=== PATIENT | female | born 1930 | race Two or more races ===

== ENCOUNTER 2019-03-27 09:35 | Emergency (ER) | payer OTHER, MEDICAID ==
[~2019-03-27] VITALS: Ht 157.5 cm; Wt 63.5 kg
[2019-03-27] MEDS ORDERED: UNOBMED (09:40)
[2019-03-27 09:41] VITALS: BP 128/61
--- NOTE | 2019-03-27 09:42 | NUR ---
ED Nurse Note: Patient brought into ED by her family member from home, c/o right wrist, lower back, and left hip pain. patient s/p fall since yesterday, reports she hit her head on the back, denies LOC, reports vomiting x1 this morning. patient is alert awake x4 breathing unlabored and even, skin is warm to touch.
[2019-03-27] MEDS ORDERED: Morphine Sulfate 2mg/ml Inj(IV/IM USE ONLY) IVP ONE (09:45)
--- NOTE | 2019-03-27 10:07 | NUR ---
ED Nurse Note: patient went to ct/xray
[2019-03-27 10:25] LABS: HEMOGLOBIN 12.2 G/DL (12.0-16.0); MEAN CORPUSCULAR VOLUME 95 FL (80-99); PLATELET COUNT 123 K/UL (150-450); RED BLOOD COUNT 3.99 M/UL (4.20-5.40); RED CELL DISTRIBUTION WIDTH 12.4 % (11.6-14.8)
[2019-03-27 10:33] LABS: ANION GAP 8 mmol/L (5-15); BLOOD UREA NITROGEN 19 mg/dL (7-18); CALCIUM 9.4 MG/DL (8.5-10.1); CARBON DIOXIDE 28 MMOL/L (21-32); CHLORIDE 106 MMOL/L (98-107); CREATININE 1.2 MG/DL (0.55-1.30); POTASSIUM 3.7 MMOL/L (3.5-5.1); SODIUM 142 MMOL/L (136-145)
--- NOTE | 2019-03-27 10:40 | Diagnostic Imaging Report ---
Indications: Head trauma, status post fall Technique: Spiral acquisitions obtained through the brain. Angled axial and coronal 5 x 5 mm slices were reconstructed. Total dose length product 1300.84 mGycm. CTDI vol(s) 70.38 mGy. Dose reduction achieved using automated exposure control Comparison: None. Findings: There is marked age-related enlargement of the ventricles and extra axial CSF spaces. Old lacunar infarct is seen in the right lentiform nucleus. Old infarct in the right posterior inferior frontal deep white matter results in some ex vacuo dilatation of the right lateral ventricle. There is generalized enlargement of the ventricles and extra-axial CSF spaces. Otherwise normal srivastava-white differentiation. No acute intracranial hemorrhage or edema, mass effect, nor midline shift. Impression: Chronic and age-related changes, as described Old lacunar infarcts Negative for acute intracranial bleed or mass effect The CT scanner at [facility] is accredited by the [employer] and the scans are performed using protocols designed to limit radiation exposure to as low as reasonably achievable to attain images of sufficient resolution adequate for diagnostic evaluation.
--- NOTE | 2019-03-27 10:50 | NUR ---
ED Nurse Note: troponin notified to Dr. Davey
--- NOTE | 2019-03-27 11:02 | NUR ---
ED Nurse Note: patient came back from CT/xray
[2019-03-27] MEDS ORDERED: DONEPEZIL HCL10 M2 ORAL (11:07)
[2019-03-27] MEDS ORDERED: HYDRALAZINE HCL25 M1 ORAL (11:07)
[2019-03-27] MEDS ORDERED: METOPROLOL TART25 MG ORAL (11:07)
[2019-03-27] MEDS ORDERED: ASPIRIN81 MG ORAL (11:08)
[2019-03-27] MEDS ORDERED: OMEPRAZOLE40 M1 ORAL (11:08)
--- NOTE | 2019-03-27 11:14 | Diagnostic Imaging Report ---
Indication: Chest pain, status post fall Technique: One view of the chest Comparison: none Findings: The bones are grossly intact. No pneumothorax. Lungs and pleural spaces are clear. The heart is borderline enlarged. The aorta is tortuous and calcified. Surgical clips are seen in the upper abdomen. Impression: No acute process
[2019-03-27 11:24] LABS: ALANINE AMINOTRANSFERASE 22 U/L (12-78); ALBUMIN 3.5 G/DL (3.4-5.0); ALBUMIN/GLOBULIN RATIO 1.1 (1.0-2.7); ALKALINE PHOSPHATASE 59 U/L (46-116); ASPARTATE AMINO TRANSFERASE 23 U/L (15-37); BILIRUBIN,TOTAL 0.5 MG/DL (0.2-1.0); CKMB 1.1 NG/ML (0.0-3.6); CREATINE KINASE 144 U/L (26-308)
--- NOTE | 2019-03-27 11:37 | Diagnostic Imaging Report ---
Indication: Left hip pain, status post fall Technique: One view of the pelvis, 2 views of the left hip Comparison: none Findings: Bones are osteoporotic. The AP pelvis view demonstrates slight asymmetry of the left hip, without definite fracture visible on the dedicated hip radiographs. Probably secondary to asymmetric rotation. No definite acute fractures. No dislocations. The joint spaces are preserved. There is an old healed fracture deformity of the right inferior pubic ramus. Surgical clips are seen in the lower abdomen Impression: No definite acute bony trauma. Note, however, that in elderly osteoporotic patients, nondisplaced hip and pelvic fractures can easily be occult. Consider cross-sectional imaging for further evaluation if there is high clinical suspicion
--- NOTE | 2019-03-27 11:41 | Diagnostic Imaging Report ---
Indication: Reason For Exam: FALL Technique: 3 views of the lumbar spine Comparison: None Findings:Exam is limited due to scoliotic deformity and overlying surgical clips and monitoring leads. No definite acute fractures. There is equivocal slight loss of height of the L2 vertebral body, but this could be due to degenerative remodeling or an artifact of the scoliotic deformity. No dislocations. The disc spaces are preserved. The visualized pedicles are intact. Impression: Limited exam. No definite acute bony trauma
--- NOTE | 2019-03-27 11:47 | NUR ---
ED Nurse Note: xray at the bedside
--- NOTE | 2019-03-27 12:45 | Diagnostic Imaging Report ---
Clinical Indication:Pain, status post fall Technique: 3 views of the right wrist Comparison: None Findings: Bones are profoundly osteoporotic. On the lateral view, one or more small osseous fragments are seen projected posterior to the proximal carpal row, and a somewhat better corticated fragment projects anterior to the proximal carpal row. Otherwise, no definite acute fractures. No dislocations. The joint spaces are preserved. There may be some calcification of the triangular fibrocartilage. Impression: Small osseous fragments posterior to the proximal carpal row. Suspect degenerative in nature but triquetral fracture of indeterminate acuity also possible. Correlate with clinical findings No other definite acute process Osteoporosis Findings discussed by phone with Dr. Hawkins
--- NOTE | 2019-03-27 15:06 | Emergency Room Report ---
History of Present Illness General Chief Complaint: Multiple Trauma/Fall Source: Patient Present Illness HPI 88-year-old female presents ED for evaluation. Brought in by running with head pain and back pain and hip pain status post fall yesterday. States it was a mechanical fall. Unsure whether she lost consciousness. Complaining of pain to her head and back and hip. Pain is dull, 8 out of 10, nonradiating. Denies chest pain or shortness of breath. No other aggravating relieving factors. Denies any other associated symptoms Allergies: Coded Allergies: CODEINE (Verified Allergy, Severe, 03/27/19) STREPTOMYCIN (Verified Allergy, Severe, 03/27/19) lips swell Patient History Past Medical History: HTN Past Surgical History: none Pertinent Family History: none Social History: Denies: smoking, alcohol use, drug use Now: No Immunizations: UTD Reviewed Nursing Documentation: PMH: Agreed; PSxH: Agreed Nursing Documentation-PMH Past Medical History: No History, Except For Hx Hypertension: Yes Review of Systems All Other Systems: negative except mentioned in HPI Physical Exam Vital Signs Date Time Temp Pulse Resp B/P (MAP) Pulse Ox O2 Delivery O2 Flow Rate FiO2 03/27/19 09:37 98.2 54 16 132/67 (88) 95 Room Air Sp02 EP Interpretation: reviewed, normal General Appearance: no apparent distress, alert, GCS 15, non-toxic Head: normocephalic, other - posterior scalp TTP Eyes: bilateral eye normal inspection, bilateral eye PERRL ENT: hearing grossly normal, normal pharynx, no angioedema, normal voice Neck: full range of motion, supple/symm/no masses Respiratory: chest non-tender, lungs clear, normal breath sounds, speaking full sentences Cardiovascular #1: regular rate, rhythm, no edema Cardiovascular #2: 2+ carotid (R), 2+ carotid (L), 2+ radial (R), 2+ radial (L) , 2+ dorsalis pedis (R), 2+ dorsalis pedis (L) Gastrointestinal: normal bowel sounds, non tender, soft, non-distended, no guarding, no rebound Rectal: deferred Genitourinary: normal inspection, no CVA tenderness, vertebral tenderness Musculoskeletal: back normal, gait/station normal, normal range of motion, tender - L hip Neurologic: alert, oriented x3, responsive, motor strength/tone normal, sensory intact, speech normal Psychiatric: judgement/insight normal, memory normal, mood/affect normal, no suicidal/homicidal ideation Reflexes: 3+ bicep (R), 3+ bicep (L), 3+ tricep (R), 3+ tricep (L), 3+ knee (R) , 3+ knee (L) Lymphatic: no adenopathy Procedures Splinting Splinting : Consent: Verbal Pre-Made Type: velcro Splint: wrist Pre-Proc Neuro Vasc Exam: normal Post-Proc Neuro Vasc Exam: normal Patient Tolerated: Well Complications: None Medical Decision Making Diagnostic Impression: Primary Impression: Multiple injuries due to trauma Additional Impression: Elevated troponin ER Course Hospital Course 88 yo F presents with headache, back and hip pain s/p fall Differential diagnoses include: WI/unstable angina, arrythmia, dehydration, CVA/ TIA Clinical course Patient placed on stretcher. on cardiac cath lab technologist. After initial history and physical I ordered labs, EKG, chest x-ray, pain meds,, CT Brain labs reviewed- no leukocytosis, hemoglobin/hematocrit ok, electrolytes okay, troponins 0.119 EKG- NSR, no acute ischemic changes interpreted by me Chest x-ray- no acute process CT brain-unremarkable L-spine and hip x-ray show no obvious fracture Wrist x-ray shows questionable triquetral fracture placed in wrist splint. Denies chest pain. Given aspirin. because of insurance patient will be transferred I. I feel this is a highly complex case requiring extensive working including EKG/Rhythm strip, Xray/CT/US, Blood/urine lab work, repeat exams while in ED, and administration of strong opiates/narcotics for pain control, admission to hospital or close patient follow up. Diagnosis - multiple injuries due to trauma, elevated troponin transferred in serious condition Labs Test 03/27/19 10:00 White Blood Count 11.0 K/UL (4.8-10.8) Red Blood Count 3.99 M/UL (4.20-5.40) Hemoglobin 12.2 G/DL (12.0-16.0) Hematocrit 38.0 % (37.0-47.0) Mean Corpuscular Volume 95 FL (80-99) Mean Corpuscular Hemoglobin 30.5 PG (27.0-31.0) Mean Corpuscular Hemoglobin Concent 32.0 G/DL (32.0-36.0) Red Cell Distribution Width 12.4 % (11.6-14.8) Platelet Count 123 K/UL (150-450) Mean Platelet Volume 12.4 FL (6.5-10.1) Neutrophils (%) (Auto) % (45.0-75.0) Lymphocytes (%) (Auto) % (20.0-45.0) Monocytes (%) (Auto) % (1.0-10.0) Eosinophils (%) (Auto) % (0.0-3.0) Basophils (%) (Auto) % (0.0-2.0) Differential Total Cells Counted 100 Neutrophils % (Manual) 82 % (45-75) Lymphocytes % (Manual) 9 % (20-45) Monocytes % (Manual) 6 % (1-10) Eosinophils % (Manual) 2 % (0-3) Basophils % (Manual) 1 % (0-2) Band Neutrophils 0 % (0-8) Platelet Estimate Decreased Platelet Morphology Normal Anisocytosis 1+ Sodium Level 142 MMOL/L (136-145) Potassium Level 3.7 MMOL/L (3.5-5.1) Chloride Level 106 MMOL/L (98-107) Carbon Dioxide Level 28 MMOL/L (21-32) Anion Gap 8 mmol/L (5-15) Blood Urea Nitrogen 19 mg/dL (7-18) Creatinine 1.2 MG/DL (0.55-1.30) Estimat Glomerular Filtration Rate mL/min (>60) Glucose Level 115 MG/DL (74-106) Calcium Level 9.4 MG/DL (8.5-10.1) Total Bilirubin 0.5 MG/DL (0.2-1.0) Aspartate Amino Transf (AST/SGOT) 23 U/L (15-37) Alanine Aminotransferase (ALT/SGPT) 22 U/L (12-78) Alkaline Phosphatase 59 U/L (46-116) Total Creatine Kinase 144 U/L (26-308) Creatine Kinase MB 1.1 NG/ML (0.0-3.6) Creatine Kinase MB Relative Index 0.7 Troponin I 0.119 ng/mL (0.000-0.056) Total Protein 6.6 G/DL (6.4-8.2) Albumin 3.5 G/DL (3.4-5.0) Globulin 3.1 g/dL Albumin/Globulin Ratio 1.1 (1.0-2.7) EKG Diagnostic Results Rate: normal Rhythm: NSR ST Segments: no acute changes ASA given to the pt in ED: Yes Rhythm Strip Diag. Results EP Interpretation: yes Rhythm: NSR, no PVC's, no ectopy Chest X-Ray Diagnostic Results Chest X-Ray Diagnostic Results : Chest X-Ray Ordered: Yes # of Views/Limited/Complete: 1 View Indication: Chest Pain EP Interpretation: Yes Interpretation: no consolidation, no effusion, no pneumothorax, no acute cardiopulmonary disease Impression: No acute disease Electronically Signed by: Electronically signed by Shubham Hawkins MD Other X-Ray Diagnostic Results Other X-Ray Diagnostic Results #1: X-Ray ordered: L spine # of Views/Limited Vs Complete: 3 View Indication: Pain EP Interpretation: Yes Interpretation: no dislocation, no soft tissue swelling, no fractures Impression: No acute disease Electronically Signed by: Electronically signed by Shubham Hawkins MD Other X-Ray Diagnostic Results #2: X-Ray ordered: R wrist # of Views/Limited Vs Complete: 3 View Indication: Pain EP Interpretation: Yes Interpretation: no dislocation, no soft tissue swelling, other - ? triquetral fx Impression: Other - ?fx Electronically Signed by: Electronically signed by Shubham Hawkins MD Other X-Ray Diagnostic Results #3: X-Ray ordered: Hip + Pelvis # of Views/Limited Vs Complete: 3 View Indication: Pain EP Interpretation: Yes Interpretation: no dislocation, no soft tissue swelling, no fractures Impression: No acute disease Electronically Signed by: Electronically signed by Shubham Hawkins MD Last Vital Signs Date Time Temp Pulse Resp B/P (MAP) Pulse Ox O2 Delivery O2 Flow Rate FiO2 03/27/19 11:03 98.2 03/27/19 09:43 60 16 Room Air 03/27/19 09:41 128/61 97 Status: improved Disposition: XFER SHT-TRM HOSP Condition: Serious Referrals: NON PHYSICIAN (PCP) Shubham Hawkins MD Mar 27, 2019 15:06
--- NOTE | 2019-03-27 15:07 | NUR ---
ED Nurse Note: Received verbal order from Dr. Hawkins to give pt asa 325mg 1 tab po once prior to transfer. overrode asa 1 tab 325mg.
--- NOTE | 2019-03-27 15:22 | NUR ---
ED Nurse Note: report given to [facility] at [place]
--- NOTE | 2019-03-27 15:35 | NUR ---
ED Nurse Note: patient is being transferred with [facility] with all of her belongings with her sister.
[2019-03-27 15:36] VITALS: BP 128/61
--- NOTE | 2019-03-29 16:27 | Cardiology Report ---
APPROVED REPORT EKG Measurement Heart [id number] PA 204P48 [id number] Sinus rhythm with marked sinus arrhythmia and PACs Right bundle branch block Minimal voltage criteria for LVH, may be normal variant Septal infarct, age undetermined Abnormal ECG
== END 2019-03-27 15:36 | disposition short-term general hospital (02) ==
LOC: EMR 10:23
DX: R51 Headache (principal); M54.9 Dorsalgia, unspecified; M25.559 Pain in unspecified hip; Z88.6 Allergy status to analgesic agent; Z88.8 Allergy status to other drugs, medicaments and biological substances; I10 Essential (primary) hypertension; W19.XXXA Unspecified fall, initial encounter
CPT/HCPCS: 29125; 36415; 70450; 71045; 72020; 73110; 73502; 80053; 82550; 82553; 84484; 85007; 85025; 93005; 96374; 99285; J2270